=== PATIENT | female | born 1950 | race Caucasian/White ===

== ENCOUNTER → 2018-12-19 | Outpatient (CLI) | payer MEDICARE, OTHER ==
[~2018-12-19] VITALS: Ht 180.3 cm; Wt 77.3 kg
[~2018-12-19] MED LIST: LIDOCAINE 1% INJ 20 ML 20 ML VIAL INJ ONE
--- NOTE | 2018-12-19 19:11 | Diagnostic Imaging Report ---
INDICATION: The diagnostic mammogram and ultrasound exam performed at [facility] on 12/05/2018 suggested an area of architectural distortion in the 10 o'clock position of the right breast at posterior depth. EXAMINATION: Stereotactic biopsy, right breast. PROCEDURE: Following aseptic preparation of the skin and administration of local anesthesia, the area in question was biopsied using a stereotactic device. Multiple samples were obtained. Two of the samples appeared to contain a few faint microcalcifications. Following the procedure, a clip was inserted into the biopsy site. The postprocedure mammogram shows that the clip is in the region of the previously described architectural distortion. The patient tolerated the procedure well and was dismissed in good condition. IMPRESSION: 1. There has been a successful stereotactic biopsy of the right breast. 2. A final pathology report is pending. Dictated by: Dictated on workstation # [id number]
== END ==
LOC: RAD 07:46
PROVIDERS: ATTEND Nurse Practitioner Family
DX: N63.11 Unspecified lump in the right breast, upper outer quadrant (principal); Z98.890 Other specified postprocedural states
CPT/HCPCS: 19081